=== PATIENT | female | born 1975 | race Asian ===

== ENCOUNTER 2019-03-07 21:23 | Inpatient (IN) | payer OTHER, MEDICAID ==
[~2019-03-07] VITALS: Ht 180.3 cm; Wt 138.3 kg
[2019-03-07] MEDS ORDERED: TETRACAINE 0.5% OPHTH DROPS 4ML BOTHEYE ONE (22:15)
[2019-03-07] MEDS ORDERED: LABETALOL HCL 20MG/4ML CARPUJECT IV ONE (22:45)
[2019-03-07 22:47] LABS: BASOPHILS % 0.3 % (0.0-2.0); EOSINOPHILS % 2.1 % (0.0-5.0); HEMATOCRIT. 41.9 % (36.0-48.0); HEMOGLOBIN. 13.9 g/dL (12.0-16.0); LYMPHOCYTES % 25.7 % (20.0-50.0); MEAN CORPUSCULAR HEMOGLOBIN 26.5 pg (28.0-32.0); MEAN CORPUSCULAR VOLUME 79.9 fL (81.0-99.0); MEAN PLATELET VOLUME 8.5 fl (7.4-10.4); MONOCYTES % 7.4 % (2.0-8.0); NEUTROPHILS % 64.5 % (40.0-76.0); PLATELET 205 x1000/uL (130-400); RED BLOOD CELL COUNT 5.25 mill/uL (4.2-5.4); RED CELL DISTRIBUTION WIDTH 16.1 % (11.6-14.6)
[2019-03-07 22:57] LABS: CHLORIDE 103 mEq/L (98-107)
[2019-03-07] MEDS ORDERED: LABETALOL 5MG/ML SYR 20 MG/4 ML SYRINGE IV NR (23:00)
[2019-03-07 23:01] LABS: ETHANOL BLOOD < 10 mg/dL
[2019-03-07 23:04] LABS: CLARITY URINE CLEAR (CLEAR); COLOR URINE YELLOW (YELLOW); KETONES URINE NEGATIVE (NEGATIVE); LEUKOCYTE ESTERASE URINE NEGATIVE (NEGATIVE); NITRITE URINE NEGATIVE (NEGATIVE); OCCULT BLOOD URINE 2+ (NEGATIVE); PROTEIN URINE 3+ (NEGATIVE); SPECIFIC GRAVITY URINE 1.014 (1.005-1.030)
[2019-03-07 23:11] LABS: *BARBITURATES SCREEN URINE NEGATIVE (NEGATIVE); *BENZODIAZEPINES SCREEN URINE NEGATIVE (NEGATIVE)
[2019-03-07 23:12] LABS: *AMPHETAMINES SCREEN URINE NEGATIVE (NEGATIVE); *COCAINE SCREEN URINE NEGATIVE (NEGATIVE); CANNABINOID URINE SCREEN NEGATIVE (NEGATIVE); METHADONE URINE SCREEN NEGATIVE (NEGATIVE); OPIATES URINE SCREEN NEGATIVE (NEGATIVE); PHENCYCLIDINE URINE SCREEN NEGATIVE (NEGATIVE)
[2019-03-07] MEDS ORDERED: FLUORESCEIN SODIUM 1MG/STRIP BOTHEYE ONE (23:45)
[2019-03-08] VITALS (27 sets, daily range): BP systolic 40–218; BP diastolic 26–149
[2019-03-08] MEDS ORDERED: LABETALOL HCL 20MG/4ML CARPUJECT IV ONE
[2019-03-08] MEDS ORDERED: LABETALOL 5MG/ML SYR 20 MG/4 ML SYRINGE IV NR (00:15)
[2019-03-08] MEDS ORDERED: METOPROLOL TARTRATE 50MG TABLET PO ONE (00:30)
[2019-03-08] MEDS ORDERED: DIPHENHYDRAMINE 50MG/ML VIAL IV PRN (06:15)
[2019-03-08] MEDS ORDERED: LORAZEPAM 2MG/ML CPJ IV PRN (06:15)
[2019-03-08] MEDS ORDERED: GUAIFENESIN 200MG/10ML SUGAR FREE UDC PO PRN (06:15)
[2019-03-08] MEDS ORDERED: ONDANSETRON HCL 4MG/2ML INJ IV PRN (06:15)
[2019-03-08] MEDS ORDERED: ACETAMINOPHEN 325MG TABLET PO PRN (06:15)
[2019-03-08] MEDS ORDERED: HYDROCODONE/ACETAMINOPHEN 5/325MG TABLET PO PRN (06:15)
[2019-03-08] MEDS ORDERED: HYDROMORPHONE HCL/PF 2MG/ML CPJ IV PRN (06:15)
[2019-03-08] MEDS ORDERED: NA PHOS,M-B/NA PHOS,DI-BA ENEMA 118ML PR PRN (06:15)
[2019-03-08] MEDS ORDERED: DOCUSATE SODIUM 100MG CAPSULE PO PRN (06:15)
[2019-03-08] MEDS ORDERED: MAGNESIUM/ALUMINUM HYDROXIDE/SIMETHICONE 30ML UDC PO PRN (06:15)
[2019-03-08] MEDS ORDERED: IPRATROPIUM/ALBUTEROL 0.5-3(2.5)MG/3ML NEB INH PRN (06:15)
[2019-03-08] MEDS: CLONIDINE 0.1MG TABLET PO PRN ×2 (06:56→15:22)
[2019-03-08] MEDS: ENOXAPARIN 40MG/0.4ML SYR SUBCUT SCH ×2 (09:03→20:54)
[2019-03-08] MEDS: ASPIRIN 81MG EC TABLET PO SCH (09:05)
[2019-03-08 09:59] LABS: CHLORIDE 104 mEq/L (98-107)
[2019-03-08] MEDS: HYDRALAZINE 20MG/ML VIAL IV PRN ×2 (10:17→18:38)
[2019-03-08] MEDS: AMLODIPINE 5MG TABLET PO SCH ×2 (13:43→20:57)
[2019-03-08] MEDS: CLONIDINE 0.1MG TABLET PO SCH ×2 (13:43→20:57)
[2019-03-09 02:00] VITALS: BP 136/84
[2019-03-09 04:00] VITALS: BP 123/70
[2019-03-09 06:00] VITALS: BP 145/100
[2019-03-09] MEDS: CLONIDINE 0.1MG TABLET PO SCH (06:30)
[2019-03-09 07:02] LABS: BASOPHILS % 0.3 % (0.0-2.0); EOSINOPHILS % 1.8 % (0.0-5.0); HEMATOCRIT. 41.2 % (36.0-48.0); HEMOGLOBIN. 13.4 g/dL (12.0-16.0); LYMPHOCYTES % 23.4 % (20.0-50.0); MEAN CORPUSCULAR HEMOGLOBIN 26.2 pg (28.0-32.0); MEAN CORPUSCULAR VOLUME 80.7 fL (81.0-99.0); MEAN PLATELET VOLUME 8.7 fl (7.4-10.4); MONOCYTES % 7.8 % (2.0-8.0); NEUTROPHILS % 66.7 % (40.0-76.0); PLATELET 198 x1000/uL (130-400); RED BLOOD CELL COUNT 5.11 mill/uL (4.2-5.4); RED CELL DISTRIBUTION WIDTH 16.4 % (11.6-14.6)
[2019-03-09 07:24] LABS: CHLORIDE 104 mEq/L (98-107)
[2019-03-09 07:38] LABS: LDL CHOLESTEROL 160 mg/dL (5-100); T4 FREE 1.21 ng/dL (0.76-1.46)
[2019-03-09 07:39] LABS: HDL CHOLESTEROL 34 mg/dL (40-59)
[2019-03-09 08:00] VITALS: BP 139/77
[2019-03-09 10:10] VITALS: BP 147/87
[2019-03-09] MEDS: AMLODIPINE 5MG TABLET PO SCH (10:22)
[2019-03-09] MEDS: ENOXAPARIN 40MG/0.4ML SYR SUBCUT SCH (10:23)
[2019-03-09] MEDS: ASPIRIN 81MG EC TABLET PO SCH (10:31)
[2019-03-09 12:44] VITALS: BP 158/83
== END 2019-03-09 16:39 | disposition home or self-care (01) | DRG 47 ==
LOC: ER 21:23 → 5EST 03-08 00:04 → ENRESERV 03-08 00:26
PROVIDERS: ADMIT Internal Medicine; ATTEND Internal Medicine
DX: G45.9 Transient cerebral ischemic attack, unspecified (principal); E87.2 Acidosis; I50.9 Heart failure, unspecified; I11.0 Hypertensive heart disease with heart failure; I16.1 Hypertensive emergency; E66.9 Obesity, unspecified; E87.6 Hypokalemia; Z86.73 Personal history of transient ischemic attack (TIA), and cerebral infarction without residual deficits; Z98.891 History of uterine scar from previous surgery; Z68.41 Body mass index [BMI] 40.0-44.9, adult
CPT/HCPCS: 36415; 71045; 80048; 80061; 80305; 80320; 82140; 82962; 83605; 84439; 84443; 84484; 85651; 86140; 93005; 93306; 93970; 99285; J0360; J1650; J3490; G0480